=== PATIENT | male | born 1990 | race Caucasian/White ===

== ENCOUNTER → 2017-02-19 | Outpatient (CLI) | payer OTHER ==
[~2017-02-19] MED LIST: IBUP-103 PO; PROP80TA2 PO
== END | disposition home or self-care (01) ==
LOC: C.LABBFT 08:22
PROVIDERS: ATTEND Internal Medicine
DX: E55.9 Vitamin D deficiency, unspecified (principal)

== ENCOUNTER → 2017-03-20 | Outpatient (CLI) | payer OTHER | END | disposition home or self-care (01) | LOC: C.LABBFT 08:22 | PROVIDERS: ATTEND Physician Assistant Medical | DX: E55.9 Vitamin D deficiency, unspecified (principal) ==

== ENCOUNTER 2017-11-25 11:23 | Emergency (ER) | payer OTHER ==
[~2017-11-25] VITALS: Ht 170.2 cm; Wt 99.7 kg
[2017-11-25 11:27] VITALS: Ht 170.2 cm; Wt 99.7 kg
[2017-11-25] MEDS ORDERED: ONDANSETRON INJ 2 MG/ML 2 ML VIAL IV STA (11:47)
[2017-11-25] MEDS ORDERED: SODIUM CHLORIDE 0.9% 1000ML 1,000 ML IV STA (11:47)
[2017-11-25 12:02] LABS: MANUAL MICROSCOPIC REQUIRED? NO; REVIEW REQ? NO; URINE APPEARANCE CLEAR (CLEAR); URINE BILIRUBIN NEG (NEG); URINE COLOR YELLOW; URINE NITRITE NEG (NEG); URINE SPECIFIC GRAVITY 1.032 (1.000-1.030); UROBILINOGEN NEG (NEG); ZZUR CULT IF INDIC CLEAN CATCH NO
--- NOTE | 2017-11-25 12:02 | EMERGENCY ROOM VISIT NOTE ---
History First contact with patient: 11:31 Chief Complaint: VOMITING Stated Complaint: RIGHT SIDE PAIN, VOMITING Nursing Triage Summary: patient c/ nausea, vomiting, diarrhea and to right abdomen since 0300 today History of Present Illness The patient is a 27 year old male who presents to the Emergency Room with complaints of generalized abdominal pain, nausea, vomiting, and diarrhea. The patient states last night at approximate 10 PM, he had one episode of diarrhea. He states at approximately 11:30, he began vomiting. He describes associated anorexia and decreased appetite last evening, as he was overall not feeling well. He states approximately 3 AM, he awoke with pain in his abdomen. He states the pain is generalized, but seems to localize in the right lower quadrant on occasion. He states the pain in the right lower quadrant is the same as the pain he has experienced in throughout the entire abdomen, and this pain is worse after vomiting and retching. The pain does occasionally radiate into the right flank, and the patient is complaining of a dry mouth. The flank pain is worse when the patient has to urinate and while urinating, then improves after he urinates. He has never had surgery, does still have his appendix. The patient has not traveled recently. He did have one episode of vomiting 2 days ago. He ate only cheese yesterday throughout the day. He denies any upper respiratory infection symptoms including sore throat, fever, congestion, chills, otalgia, and also denies chest pain, dyspnea, or wheezing. Review of Systems A complete 10 point review of systems was reviewed with the patient with pertinent positives and negatives as per history of present illness. All else were negative. Past Medical/Surgical History Medical Problems: (1) benign tremor (2) Chronic constipation (3) skin problems Social History Smoking Status: Never Smoker Alcohol Use: none Marital Status: single Housing Status: lives with family Occupation Status: unemployed, disabled Current/Historical Medications Scheduled Cholecalciferol (Vitamin D3), 1 CAP PO DAILY Propranolol (Inderal), 60 MG PO DAILY Scheduled PRN Naproxen (Aleve), 220 MG PO DAILY PRN for Pain Physical Exam Vital Signs Date Time Temp Pulse Resp B/P (MAP) Pulse Ox O2 Delivery O2 Flow Rate FiO2 11/25/17 13:09 112 18 128/77 98 11/25/17 11:27 37.8 148 18 127/87 97 Room Air Physical Exam VITALS: Vitals are noted on the nurse's note and reviewed by myself. Vital signs stable. GENERAL: This is a 27-year-old obese white male, in no acute distress, nondiaphoretic, well-developed well-nourished. SKIN: The skin was without rashes, erythema, edema, or bruising. There is no tenting of the skin. Capillary reflex less than 2 seconds. HEAD: Normocephalic atraumatic. EARS: External auditory canals clear, tympanic membranes pearly cruz without erythema or effusion bilaterally. EYES: Pupils equal round and reactive to light and accommodation. Conjunctivae without injection, sclerae without icterus. Extraocular movements intact. NOSE: Patent, turbinates without inflammation or discharge. No sinus tenderness. MOUTH: Mucous membranes moist. Tonsils are not enlarged. Pharynx without erythema or exudate. Uvula midline. Airway patent. Tongue does not deviate. NECK: Supple without nuchal rigidity. No lymphadenopathy. No thyromegaly. Cervical spine is nontender. No JVD. HEART: Regular rate and rhythm without murmurs gallops or rubs. LUNGS: Clear to auscultation bilaterally without wheezes, rales or rhonchi. No dullness to percussion. No retractions or accessory muscle use. ABDOMEN: Positive bowel sounds x 4. Normal tympanic percussion. Generalized tenderness. There is no specific right lower quadrant tenderness on palpation. The abdomen is soft, without masses or organomegaly. Bryan sign negative. No guarding or rebound tenderness. Rovsing was negative. MUSCULOSKELETAL: No muscle atrophy, erythema, or edema noted. Full range of motion without joint tenderness in all extremities. No tenderness to palpation. Normal gait. Strength 5/5 throughout. NEURO: Patient was alert and oriented to person place and time. Normal sensation to light and sharp touch. Deep tendon reflexes 2+ throughout. No focal neurological deficits. Medical Decision & Procedures ER Provider Diagnostic Interpretation: CBC was without leukocytosis, anemia, thrombocytopenia. Urinalysis did show trace occult blood and 5-10 red blood cells. CMP did not show any significant electrolyte, renal, hepatic abnormalities. Blood sugar was elevated at 136. Lipase was negative at 82. ABD/PELVIS WITHOUT FOR STONE CLINICAL HISTORY: 27 years-old Male presenting with right flank/RLQ abdominal pain. TECHNIQUE: Multidetector CT of the abdomen and pelvis was performed without the use of intravenous contrast. IV contrast: None. A dose lowering technique was used consistent with the principles of ALARA (as low as reasonably achievable). COMPARISON: None. CT DOSE (mGy.cm): The estimated cumulative dose is not available. FINDINGS: [employer] Room topogram: Unremarkable. Lung bases: Minimal basilar opacities, likely atelectasis. Mosaic attenuation at the lung bases could suggest small airways disease or relate to the phase of respiration. Normal heart size. No pericardial or pleural effusion. Liver: Normal morphology. Density consistent with hepatic steatosis. Biliary: No gross biliary ductal dilatation allowing for noncontrast technique. Normal gallbladder. Pancreas: Normal noncontrast appearance. Spleen: Normal noncontrast appearance. Adrenal glands: Normal noncontrast appearance. Kidneys and ureters: Normal noncontrast appearance. No nephrolithiasis. No hydronephrosis. Normal ureters. Bladder: Incompletely evaluated secondary to underdistention. Pelvic organs: Prostate and seminal vesicles normal. Bowel: Fluid noted in the colon suggesting a diarrheal state. No significant colonic wall thickening or pericolonic inflammatory change. The appendix is normal. No bowel obstruction. Peritoneal cavity: No free fluid or intraperitoneal gas. Lymph nodes: No gross lymphadenopathy allowing for noncontrast technique. Vasculature: Normal noncontrast appearance. Abdominal wall: Small fat-containing left inguinal hernia. Musculoskeletal: Normal. IMPRESSION: 1. Fluid throughout the colon suggests a diarrheal state. No other CT evidence of colitis or acute intra-abdominal pathology. 2. Hepatic steatosis. Correlate with liver function tests to exclude steatohepatitis as a cause for right-sided abdominal pain. 3. No evidence of nephrolithiasis or ureteral calculi. No evidence to suggest a recently passed calculus. Electronically signed by: Erik Erickson M.D. 11/25/2017 12:24 PM Dictated Date/Time: 11/25/2017 12:19 PM Laboratory Results 11/25/17 12:00 Red Blood Count 5.61, Mean Corpuscular Volume 86.1, Mean Corpuscular Hemoglobin 30.1, Mean Corpuscular Hemoglobin Concent 35.0, Mean Platelet Volume 10.1, Neutrophils (%) (Auto) 92.4, Lymphocytes (%) (Auto) 2.7, Monocytes (%) (Auto) 4.2, Eosinophils (%) (Auto) 0.0, Basophils (%) (Auto) 0.1, Neutrophils # (Auto) 8.87, Lymphocytes # (Auto) 0.26, Monocytes # (Auto) 0.40, Eosinophils # (Auto) 0.00, Basophils # (Auto) 0.01 11/25/17 12:00 Test 11/25/17 11:50 11/25/17 12:00 Urine Color YELLOW Urine Appearance CLEAR (CLEAR) Urine pH 5.0 (4.5-7.5) Urine Specific [place] 1.032 (1.000-1.030) Urine Protein 2+ (NEG) Urine Glucose (UA) NEG (NEG) Urine Ketones NEG (NEG) Urine Occult Blood TRACE (NEG) Urine Nitrite NEG (NEG) Urine Bilirubin NEG (NEG) Urine Urobilinogen NEG (NEG) Urine Leukocyte Esterase NEG (NEG) Urine WBC (Auto) 1-5 /hpf (0-5) Urine RBC (Auto) 5-10 /hpf (0-4) Urine Hyaline Casts (Auto) 1-5 /lpf (0-5) Urine Epithelial Cells (Auto) 5-10 /lpf (0-5) Urine Bacteria (Auto) NEG (NEG) White Blood Count 9.60 K/uL (4.8-10.8) Red Blood Count 5.61 M/uL (4.7-6.1) Hemoglobin 16.9 g/dL (14.0-18.0) Hematocrit 48.3 % (42-52) Mean Corpuscular Volume 86.1 fL (80-100) Mean Corpuscular Hemoglobin 30.1 pg (25-34) Mean Corpuscular Hemoglobin Concent 35.0 g/dl (32-36) Platelet Count 189 K/uL (130-400) Mean Platelet Volume 10.1 fL (7.4-10.4) Neutrophils (%) (Auto) 92.4 % Lymphocytes (%) (Auto) 2.7 % Monocytes (%) (Auto) 4.2 % Eosinophils (%) (Auto) 0.0 % Basophils (%) (Auto) 0.1 % Neutrophils # (Auto) 8.87 K/uL (1.4-6.5) Lymphocytes # (Auto) 0.26 K/uL (1.2-3.4) Monocytes # (Auto) 0.40 K/uL (0.11-0.59) Eosinophils # (Auto) 0.00 K/uL (0-0.5) Basophils # (Auto) 0.01 K/uL (0-0.2) RDW Standard Deviation 41.4 fL (36.4-46.3) RDW Coefficient of Variation 13.3 % (11.5-14.5) Immature Granulocyte % (Auto) 0.6 % Immature Granulocyte # (Auto) 0.06 K/uL (0.00-0.02) Anion Gap 10.0 mmol/L (3-11) Est Creatinine Clear Calc Drug Dose 133.1 ml/min Estimated GFR () 129.0 Estimated GFR (Non- 111.3 BUN/Creatinine Ratio 20.0 (10-20) Calcium Level 8.6 mg/dl (8.5-10.1) Total Bilirubin 0.5 mg/dl (0.2-1) Aspartate Amino Transf (AST/SGOT) 22 U/L (15-37) Alanine Aminotransferase (ALT/SGPT) 32 U/L (12-78) Alkaline Phosphatase 162 U/L (45-117) Total Protein 8.1 gm/dl (6.4-8.2) Albumin 3.8 gm/dl (3.4-5.0) Globulin 4.3 gm/dl (2.5-4.0) Albumin/Globulin Ratio 0.9 (0.9-2) Lipase 82 U/L (73-393) Medications Administered Medications (Trade) Dose Ordered Sig/Elie Route Start Time Stop Time Status Last Admin Dose Admin Ondansetron HCl (Zofran Inj) 4 mg NOW STAT IV 11/25/17 11:47 11/25/17 11:51 DC 11/25/17 11:56 4 MG Sodium Chloride 1,000 ml @ 999 mls/hr Q1H1M STAT IV 11/25/17 11:47 11/25/17 12:47 DC 11/25/17 11:56 999 MLS/HR Ondansetron HCl (ZOFRAN ODT 4MG Home Pack) 1 homepack UD STAT PO 11/25/17 12:55 11/25/17 12:56 DC 11/25/17 13:08 1 HOMEPACK Medical Decision The patient was seen and evaluated as above. He presented today complaining of right lower quadrant abdominal pain radiating into the flank. This began in the middle of the night. The patient has also had associated nausea, vomiting, and diarrhea. And for possible ureteral calculus, especially with hematuria noted on urinalysis. A scan was ordered to evaluate for ureteral calculus as well as appendicitis. Scan and lab work were unrevealing for stone or appendicitis. CT did show a density consistent with hepatic steatosis. I did discuss this finding with the patient and his family at bedside. I encouraged him to follow up outpatient for further evaluation. The patient's LFTs were without abnormality, so I am not concerned for acute hepatic abnormality as the cause of the patient's symptoms. The patient was given 1L NSS and 4mg Zofran through the IV and was feeling much improved. I do suspect a viral gastroenteritis. Discharge instructions were reviewed and the patient was discharged home in good condition. Differential diagnosis includes gastroenteritis, ureteral calculus, nephrolithiasis, appendicitis, diverticulitis, pancreatitis, hepatic abnormality , cholecystitis, urinary tract infection, pyelonephritis, hydronephrosis, malignancy, and others Medication Reconcilliation Current Medication List: was personally reviewed by me Blood Pressure Screening Patient's blood pressure: Normal blood pressure Impression Primary Impression: Gastroenteritis Departure Information Dispostion Home / Self-Care Condition GOOD Referrals Braden Winn M.D. (PCP) Patient Instructions ED Gastroenteritis Viral, My [facility] Additional Instructions You have been treated in the Emergency Department your Abdominal Pain. Laboratory results and imaging studies have ruled out any emergent causes for your abdominal pain which would warrant admission or surgery. You have been prescribed Zofran to be used for any nausea or vomiting. Take as prescribed. For pain control, you can use the following [id number]-[id number] medicines (if >12 yo): Ibuprofen(Motrin, Advil) may be used for fever or pain. Use 600mg every six hours as needed. Take with food. Avoid using more than 2400mg in a 24 hour period. Do not use 2400mg per day for more than three consecutive days without physician direction. Prolonged inappropriate use can lead to stomach upset or ulcers. (AND/OR) Acetaminophen(Tylenol) may be used for fever or pain. Use 1000mg every six hours as needed. Avoid using more than 3000mg in a 24 hour period. As discussed, there were some abnormalities noted in the liver on CT scan. You should schedule a non-emergent follow-up with your PCP to discuss these findings. As discussed, your blood sugar was elevated. This was not a true fasting test, so you will probably need repeat testing performed. You should follow-up with your PCP for possible diabetes testing. Drink plenty of water and stay well hydrated. As with any trip to the Emergency Department, you should follow-up with your Primary Care Provider from today's visit. Return to the emergency department if your symptoms persist despite treatment plan outlined above or if the following symptoms occur: increased fevers, chills , worsening nausea/vomiting, blood in your stool or urine.
[2017-11-25 12:10] LABS: BASO % 0.1 %; BASO ABS # 0.01 K/uL (0-0.2); COMPLETE YES; HEMATOCRIT 48.3 % (42-52); IG% 0.6 %; LYMPH % 2.7 %; LYMPH ABS # 0.26 K/uL (1.2-3.4); MEAN CELL VOLUME 86.1 fL (80-100); MEAN CORPUSCULAR HEMOGLOBIN 30.1 pg (25-34); MEAN PLATELET VOLUME 10.1 fL (7.4-10.4); MONO % 4.2 %; NEUT % 92.4 %; PLATELET COUNT 189 K/uL (130-400); RED BLOOD COUNT 5.61 M/uL (4.7-6.1)
[2017-11-25] MEDS ORDERED: PROP1TAB PO (12:24)
[2017-11-25] MEDS ORDERED: NAPR1TAB9 PO (12:24)
[2017-11-25] MEDS ORDERED: CHOL2000 PO (12:24)
--- NOTE | 2017-11-25 12:25 | DIAGNOSTIC IMAGING REPORT ---
ABD/PELVIS WITHOUT FOR STONE CLINICAL HISTORY: 27 years-old Male presenting with right flank/RLQ abdominal pain. TECHNIQUE: Multidetector CT of the abdomen and pelvis was performed without the use of intravenous contrast. IV contrast: None. A dose lowering technique was used consistent with the principles of ALARA (as low as reasonably achievable). COMPARISON: None. CT DOSE (mGy.cm): The estimated cumulative dose is not available. FINDINGS: Executive Administrator topogram: Unremarkable. Lung bases: Minimal basilar opacities, likely atelectasis. Mosaic attenuation at the lung bases could suggest small airways disease or relate to the phase of respiration. Normal heart size. No pericardial or pleural effusion. Liver: Normal morphology. Density consistent with hepatic steatosis. Biliary: No gross biliary ductal dilatation allowing for noncontrast technique. Normal gallbladder. Pancreas: Normal noncontrast appearance. Spleen: Normal noncontrast appearance. Adrenal glands: Normal noncontrast appearance. Kidneys and ureters: Normal noncontrast appearance. No nephrolithiasis. No hydronephrosis. Normal ureters. Bladder: Incompletely evaluated secondary to underdistention. Pelvic organs: Prostate and seminal vesicles normal. Bowel: Fluid noted in the colon suggesting a diarrheal state. No significant colonic wall thickening or pericolonic inflammatory change. The appendix is normal. No bowel obstruction. Peritoneal cavity: No free fluid or intraperitoneal gas. Lymph nodes: No gross lymphadenopathy allowing for noncontrast technique. Vasculature: Normal noncontrast appearance. Abdominal wall: Small fat-containing left inguinal hernia. Musculoskeletal: Normal. IMPRESSION: 1. Fluid throughout the colon suggests a diarrheal state. No other CT evidence of colitis or acute intra-abdominal pathology. 2. Hepatic steatosis. Correlate with liver function tests to exclude steatohepatitis as a cause for right-sided abdominal pain. 3. No evidence of nephrolithiasis or ureteral calculi. No evidence to suggest a recently passed calculus. Electronically signed by: Erik Erickson M.D. 11/25/2017 12:24 PM Dictated Date/Time: 11/25/2017 12:19 PM
[2017-11-25 12:29] LABS: CALCIUM 8.6 mg/dl (8.5-10.1); CREATININE 0.93 mg/dl (0.60-1.40); POTASSIUM 3.5 mmol/L (3.5-5.1)
[2017-11-25 12:32] LABS: ALB/GLOB RATIO 0.9 (0.9-2)
[2017-11-25] MEDS ORDERED: ONDANSETRON HOME PACK 4MG OD TAB PO STA (12:55)
[2017-11-25 13:09] VITALS: BP 128/77; PULSE 112; O2SAT 98
== END 2017-11-25 13:10 | disposition home or self-care (01) ==
LOC: C.EDB 11:25 → C.EDA 13:10
DX: K52.9 Noninfective gastroenteritis and colitis, unspecified (principal); R10.84 Generalized abdominal pain